=== PATIENT | male | born 1980 | race Two or more races ===

== ENCOUNTER 2019-01-21 10:14 | Emergency (ER) | payer OTHER ==
[~2019-01-21] VITALS: Ht 175.3 cm; Wt 68.2 kg
[~2019-01-21 10:14] MED LIST: ALBU6.7H IH
[2019-01-21] MEDS ORDERED: DOXY50 PO (10:21)
[2019-01-21] MEDS ORDERED: RANI50VI4 IM (10:21)
[2019-01-21 11:00] VITALS: BP 134/86
[2019-01-21] MEDS: ONDANSETRON HCL 4 MG/2 ML VIAL IM ONE (11:06)
[2019-01-21] MEDS: MORPHINE SULFATE 4 MG/ML SYRINGE IM ONE (11:06)
[2019-01-21] MEDS: LIDOCAINE/PF 1% 5 ML VIAL INJ ONE (11:21)
== END 2019-01-21 11:44 | disposition home or self-care (01) ==
LOC: EMS 10:14
DX: L02.31 Cutaneous abscess of buttock (principal); J45.909 Unspecified asthma, uncomplicated; F12.90 Cannabis use, unspecified, uncomplicated
CPT/HCPCS: 10060; 96372; 99283; J2001; J2270; J2405

== ENCOUNTER 2019-01-23 18:26 | Emergency (ER) | payer OTHER ==
[~2019-01-23] VITALS: Ht 175.3 cm; Wt 75.0 kg
[~2019-01-23 18:26] MED LIST changes: -ALBU6.7H IH; +DOXY50 PO; +RANI50VI4 IM
[2019-01-23 19:15] VITALS: BP 149/83
== END 2019-01-23 19:27 | disposition home or self-care (01) ==
LOC: EMS 18:27
DX: L02.31 Cutaneous abscess of buttock (principal); J45.909 Unspecified asthma, uncomplicated; F12.90 Cannabis use, unspecified, uncomplicated; Z48.00 Encounter for change or removal of nonsurgical wound dressing

== ENCOUNTER 2019-07-05 19:03 | Emergency (ER) | payer OTHER ==
[~2019-07-05] VITALS: Ht 175.3 cm; Wt 75.0 kg
[~2019-07-05 19:03] MED LIST changes: -RANI50VI4 IM
[2019-07-05] MEDS ORDERED: ALBU8HFA IH (19:32)
[2019-07-05] MEDS ORDERED: IPRATROPIUM BROMIDE 0.5 MG/2.5 ML NEB SOLUTION NEB ONE ×2 (21:00→21:15)
[2019-07-05] MEDS ORDERED: ALBUTEROL SULFATE 2.5 MG/0.5 ML NEB SOLUTION NEB ONE (21:00)
[2019-07-05] MEDS ORDERED: 0.9% SODIUM CHLORIDE 5 ML NEB SOLUTION NEB ONE (21:10)
[2019-07-05] MEDS ORDERED: ALBUTEROL SULFATE HFA 90 MCG/PUFF 8 GM INHALER IH ONE (21:15)
[2019-07-05] MEDS ORDERED: ALBUTEROL SULFATE 5 MG/ML 20 ML NEB SOLN [BULK] NEB ONE (21:15)
[2019-07-05 22:24] VITALS: BP 125/75
== END 2019-07-05 22:30 | disposition home or self-care (01) ==
LOC: EMS 19:05
DX: J45.909 Unspecified asthma, uncomplicated (principal); F12.90 Cannabis use, unspecified, uncomplicated; Z79.899 Other long term (current) drug therapy
CPT/HCPCS: 94640; 94644; J3535

== ENCOUNTER 2019-08-08 02:29 | Emergency (ER) | payer OTHER ==
[~2019-08-08] VITALS: Ht 175.3 cm; Wt 75.0 kg
[~2019-08-08 02:29] MED LIST changes: +ALBU8HFA IH; -DOXY50 PO
[2019-08-08 03:00] VITALS: BP 136/88
[2019-08-08] MEDS ORDERED: ALBUTEROL SULFATE 2.5 MG/0.5 ML NEB SOLUTION NEB ONE (03:00)
[2019-08-08] MEDS ORDERED: IPRATROPIUM BROMIDE 0.5 MG/2.5 ML NEB SOLUTION NEB ONE (03:00)
[2019-08-08] MEDS ORDERED: ALBUTEROL SULFATE HFA 90 MCG/PUFF 8 GM INHALER IH ONE (03:30)
== END 2019-08-08 03:33 | disposition home or self-care (01) ==
LOC: EMS 02:30
DX: J45.909 Unspecified asthma, uncomplicated (principal); F12.90 Cannabis use, unspecified, uncomplicated; Z79.899 Other long term (current) drug therapy
CPT/HCPCS: 94060; 94640; J3535

== ENCOUNTER 2019-08-16 20:47 | Emergency (ER) | payer OTHER ==
[~2019-08-16] VITALS: Ht 175.3 cm; Wt 75.0 kg
[2019-08-16] MEDS ORDERED: ALBUTEROL SULFATE 2.5 MG/0.5 ML NEB SOLUTION NEB ONE (21:15)
[2019-08-16] MEDS ORDERED: IPRATROPIUM BROMIDE 0.5 MG/2.5 ML NEB SOLUTION NEB ONE (21:15)
[2019-08-16] MEDS ORDERED: 0.9% SODIUM CHLORIDE 5 ML NEB SOLUTION NEB ONE (21:27)
[2019-08-16 23:25] VITALS: BP 121/77
== END 2019-08-16 23:28 | disposition home or self-care (01) ==
LOC: EMS 20:48
DX: J45.909 Unspecified asthma, uncomplicated (principal)
CPT/HCPCS: 94640

== ENCOUNTER 2019-09-26 02:15 | Emergency (ER) | payer SELFPAY ==
[~2019-09-26] VITALS: Ht 175.3 cm; Wt 75.0 kg
[2019-09-26 02:19] VITALS: BP 128/78
[2019-09-26] MEDS ORDERED: ALBU8HFA IH (02:22)
[2019-09-26] MEDS ORDERED: ALBUTEROL SULFATE HFA 90 MCG/PUFF 8 GM INHALER IH ONE (02:30)
== END 2019-09-26 02:41 | disposition home or self-care (01) ==
LOC: EMS 02:16
DX: J45.901 Unspecified asthma with (acute) exacerbation (principal)
CPT/HCPCS: 94640; J3535

== ENCOUNTER 2019-09-30 19:24 | Emergency (ER) | payer SELFPAY ==
[~2019-09-30] VITALS: Ht 175.3 cm; Wt 75.0 kg
[2019-09-30 19:45] VITALS: BP 139/88
[2019-09-30] MEDS ORDERED: BUPIVACAINE HCL/PF 0.25% 10 ML VIAL INJ ONE (19:45)
== END 2019-09-30 20:29 | disposition home or self-care (01) ==
LOC: EMS 19:25
DX: S61.215A Laceration without foreign body of left ring finger without damage to nail, initial encounter (principal); J45.909 Unspecified asthma, uncomplicated; W45.8XXA Other foreign body or object entering through skin, initial encounter; Y93.89 Activity, other specified; Y92.89 Other specified places as the place of occurrence of the external cause; Y99.8 Other external cause status
CPT/HCPCS: 12002; 99282; J3490

== ENCOUNTER 2019-10-05 12:06 | Emergency (ER) | payer SELFPAY ==
[~2019-10-05] VITALS: Ht 175.3 cm; Wt 75.0 kg
[2019-10-05 12:09] VITALS: BP 140/76
[2019-10-05] MEDS ORDERED: CEPHALEXIN MONOHYDRATE 500 MG CAPSULE PO ONE (13:00)
[2019-10-05] MEDS ORDERED: BACITRACIN 0.9 GM PACKET OINTMENT TP ONE (13:00)
[2019-10-05] MEDS ORDERED: IBUPROFEN 400 MG TABLET PO ONE (13:00)
== END 2019-10-05 13:25 | disposition home or self-care (01) ==
LOC: EMS 12:08
DX: S61.215D Laceration without foreign body of left ring finger without damage to nail, subsequent encounter (principal); J45.909 Unspecified asthma, uncomplicated; X58.XXXD Exposure to other specified factors, subsequent encounter

== ENCOUNTER 2019-10-12 17:06 | Emergency (ER) | payer SELFPAY ==
[~2019-10-12] VITALS: Ht 175.3 cm; Wt 75.0 kg
[2019-10-12 17:08] VITALS: BP 134/75
== END 2019-10-12 17:49 | disposition home or self-care (01) ==
LOC: EMS 17:09
DX: Z48.02 Encounter for removal of sutures (principal); J45.909 Unspecified asthma, uncomplicated; F12.90 Cannabis use, unspecified, uncomplicated

== ENCOUNTER 2019-12-07 21:24 | Emergency (ER) | payer SELFPAY ==
[~2019-12-07] VITALS: Ht 175.3 cm; Wt 75.0 kg
[2019-12-07] MEDS ORDERED: ALBUTEROL SULFATE 2.5 MG/0.5 ML NEB SOLUTION NEB ONE (21:45)
[2019-12-07] MEDS ORDERED: IPRATROPIUM BROMIDE 0.5 MG/2.5 ML NEB SOLUTION NEB ONE (21:45)
[2019-12-07] MEDS ORDERED: PredniSONE 20 MG TABLET PO ONE (22:15)
[2019-12-07] MEDS ORDERED: ALBUTEROL SULFATE HFA 90 MCG/PUFF 8 GM INHALER IH ONE ×2 (22:21→22:30)
[2019-12-07 22:44] VITALS: BP 117/91
== END 2019-12-07 22:55 | disposition home or self-care (01) ==
LOC: EMS 21:24
DX: J45.909 Unspecified asthma, uncomplicated (principal); F12.90 Cannabis use, unspecified, uncomplicated
CPT/HCPCS: 94640; J3535

== ENCOUNTER 2020-09-02 21:18 | Emergency (ER) | payer MEDICAID ==
[~2020-09-02] VITALS: Ht 175.3 cm; Wt 75.0 kg
[2020-09-02] MEDS ORDERED: ALBUTEROL SULFATE 2.5 MG/0.5 ML NEB SOLUTION NEB ONE (22:00)
[2020-09-02] MEDS ORDERED: IPRATROPIUM BROMIDE 0.5 MG/2.5 ML NEB SOLUTION NEB ONE (22:00)
[2020-09-02 22:43] VITALS: BP 137/81
[2020-09-02] MEDS ORDERED: ALBUTEROL SULFATE HFA 90 MCG/PUFF 8 GM INHALER IH ONE (23:15)
== END 2020-09-02 23:29 | disposition home or self-care (01) ==
LOC: EMS 21:18
DX: J45.909 Unspecified asthma, uncomplicated (principal); Z76.0 Encounter for issue of repeat prescription; F12.90 Cannabis use, unspecified, uncomplicated
CPT/HCPCS: 94640; 99281; 99283; 99284; J3535

== ENCOUNTER 2020-09-15 23:28 | Emergency (ER) | payer MEDICAID ==
[~2020-09-15] VITALS: Ht 175.3 cm; Wt 77.3 kg
[2020-09-16 00:04] VITALS: BP 126/88
[2020-09-16] MEDS ORDERED: ALBUTEROL SULFATE HFA 90 MCG/PUFF 8 GM INHALER IH ONE (00:15)
== END 2020-09-16 00:21 | disposition home or self-care (01) ==
LOC: EMS 23:29
DX: J45.909 Unspecified asthma, uncomplicated (principal); Z76.0 Encounter for issue of repeat prescription
CPT/HCPCS: 94640; 99283; J3535

== ENCOUNTER 2020-12-05 20:32 | Emergency (ER) | payer MEDICAID ==
[~2020-12-05] VITALS: Ht 175.3 cm; Wt 72.7 kg
[2020-12-05] MEDS ORDERED: ALBUTEROL SULFATE HFA 90 MCG/PUFF 8 GM INHALER IH ONE (22:00)
[2020-12-05 22:29] VITALS: BP 134/87
== END 2020-12-05 22:51 | disposition home or self-care (01) ==
LOC: EMS 20:35
DX: J45.909 Unspecified asthma, uncomplicated (principal); E11.9 Type 2 diabetes mellitus without complications; Z76.0 Encounter for issue of repeat prescription
CPT/HCPCS: 94640; 99283; J3535

== ENCOUNTER 2021-05-10 09:24 | Emergency (ER) | payer MEDICAID ==
[~2021-05-10] VITALS: Ht 172.7 cm; Wt 72.7 kg
[2021-05-10 09:25] VITALS: BP 128/79
== END 2021-05-10 10:30 | disposition left against medical advice (07) ==
LOC: EMS 09:26
DX: J45.909 Unspecified asthma, uncomplicated (principal); Z53.21 Procedure and treatment not carried out due to patient leaving prior to being seen by health care provider

== ENCOUNTER 2021-06-29 06:41 | Emergency (ER) | payer MEDICAID ==
[~2021-06-29] VITALS: Ht 175.3 cm; Wt 75.0 kg
[2021-06-29 06:48] VITALS: BP 141/89
== END 2021-06-29 07:28 | disposition left against medical advice (07) ==
LOC: EMS 06:42
DX: R10.9 Unspecified abdominal pain (principal); Z53.21 Procedure and treatment not carried out due to patient leaving prior to being seen by health care provider